=== PATIENT | female | born 1995 | race African-American/Black ===

== ENCOUNTER 2018-04-18 09:38 | Inpatient (IN) | payer OTHER ==
[~2018-04-18 09:38] MED LIST: Lidocaine 2% MPF 10 ML AMP (For Epidural Use) ONE
[2018-04-18 10:15] VITALS: BMI 30.9
[2018-04-18] MEDS ORDERED: HYDROcodone/Acetaminophen 5/325 mg Tablet PO PRN ×4 (10:50→19:28)
[2018-04-18] MEDS ORDERED: Ibuprofen 800 MG TAB PO PRN (10:50)
[2018-04-18] MEDS ORDERED: Ondansetron HCl/PF 4 MG/2 ML Vial IVP PRN ×3 (10:50→19:28)
[2018-04-18] MEDS ORDERED: Lidocaine 1% (PF) 30 ML VIAL SC PRN (10:50)
[2018-04-18] MEDS ORDERED: Promethazine HCl 25 MG/ML VIAL IM PRN ×2 (10:50→15:06)
--- NOTE | 2018-04-18 10:56 | PDOC.LDHP ---
Labor and Delivery H&P HPI: Patient of Dr Lucio () Reason for eval: Contractions at 38 weeks + Seen in triage at 1055: Patient is a 23 yo G1 with EDC of 04/28, here for irregular contractions. Good FM , no recent trauma, no SOLITARIO, no visual changes, no RUQ pain. No VB, no leakage of fluid. Denies issues. Denies CHTN HX Review of systems: complete ROS completed and as per HPI Current gestational age (weeks): 39 Due date: 04/28/18 Dating criteria: last menstrual period Grav: 1 Para: 0 OB History Details: GBS negative. BPs in record wnl. Current complications: none Abnormal US findings: No Current medications: pre- vitamins Previous surgical history: none Allergies/Adverse Reactions: Allergies Allergy/AdvReac Type Severity Reaction Status Date / Time No Known Allergies Allergy Unverified 04/18/18 10:17 - Physical Exam Vital signs reviewed and normal: yes Abnormal vital signs: BPs are 150s/80s x 2..pulse 80s, afebrile General: NAD Heart: RRR Lungs: CTAB Abdomen: gravid (S=D, suspect EFW about 6.5#, but BMI 30...so may be limited) Extremeties: trace edema FHT: category 1 [place] contractions every: irregular, about every 5-7 minutes; palpate mild to moderate - Vaginal Exam cm dilated: 2 (BOWI, midposition) Effacement: 100% Station: 0 - Assessment L&D Assessment: medically indicated induction (38 weeks with new onset higher BPs than usual, assume PIH. Per ACOG, PIH should have induction considered at 37 weeks or more. As cervix favorable, I have ordered pitocin. GBS negative. I have notified Dr lucio of his patient's arrival...pending his confirmation.) - Plan Plan: admit to L&D, informed consent obtained, anesthesia consult for pain management, other (Pitocin per protocol as CX favorable)
[2018-04-18] MEDS ORDERED: NS w/ Oxytocin 10 units 500 ML IV SCH (11:00)
[2018-04-18] MEDS: Lactated Ringer's 1,000 ML IV SCH ×2 (11:40→19:00)
[2018-04-18] MEDS: Butorphanol Tartrate 1 MG/ML VIAL SLOW IVP PRN ×2 (11:56→13:28)
[2018-04-18 11:58] LABS: Hemoglobin 9.4 g/dL (12.0-16.0); Mean Corpuscular HGB CONC 32.1 g/dL (32.0-36.0); Mean Corpuscular Hemoglobin 25.8 pg (27.0-31.0); Mean Corpuscular Volume 80.3 fL (78.0-98.0); Mean Platelet Volume 10.5 fL (7.4-10.4); Platelet Count 254 thou/uL (130-400); RBC Distribution Width 16.8 % (11.5-14.5); Red Blood Cell (RBC) Count 3.62 mill/uL (4.20-5.40); White Blood Cell (WBC) Count 15.5 thou/uL (4.8-10.8)
[2018-04-18 12:10] LABS: ALT (SGPT) 8 U/L (8-55); AST (SGOT) 24 U/L (5-34); Albumin 3.6 g/dL (3.5-5.0); Alkaline Phosphatase 154 U/L (40-150); Anion Gap 18 mmol/L (10-20); BUN (Urea Nitrogen) Less than 4 mg/dL (7.0-18.7); Bilirubin, Total 0.2 mg/dL (0.2-1.2); Calc. Creatinine Clearance 191 mL/min (70-130); Calcium 9.5 mg/dL (7.8-10.44); Carbon Dioxide 17 mmol/L (22-29); Chloride 107 mmol/L (98-107); Estimated GFR-MDRD Greater than 90; Globulin 3.6 g/dL (2.4-3.5); Glucose 76 mg/dL (70-105); Potassium 4.8 mmol/L (3.5-5.1); Protein, Total 7.2 g/dL (6.0-8.3); Sodium 137 mmol/L (136-145)
[2018-04-18 12:28] LABS: Syphilis Antibody Nonreactive (Nonreactive); Syphilis Antibody Index 0.03 S/CO (<1.00 Non-Reactive)
[2018-04-18 12:49] LABS: HBSAg Index 0.16 S/CO (0-0.99); HIV (1/2) Antibody/Antigen Non-Reactive (NonReactive); HIV 1/2 INDEX 0.32 S/CO (<1.00); Hep B Surf Ag Non-Reactive S/CO (NonReactive)
[2018-04-18] MEDS ORDERED: Bupivacaine 0.5% 20 ML, fentaNYL Citrate/PF 400 MCG in Sodium Chloride 0.9% 72 ML EPIDURAL SCH (13:45)
[2018-04-18] MEDS ORDERED: DISCONTINUE ALL PREVIOUS NARCOTICS FS SCH (13:45)
[2018-04-18] MEDS ORDERED: Lactated Ringer's 500 ML IV PRN (15:06)
[2018-04-18] MEDS ORDERED: diphenhydrAMINE 50 MG/ML VIAL IVP PRN (15:06)
[2018-04-18] MEDS ORDERED: ePHEDrine/0.9% NaCl/PF SYRINGE 50 mg/10 ml SLOW IVP PRN (15:06)
[2018-04-18] MEDS ORDERED: Eucerin (Mineral Oil/Petrolatum,White) 30 gm Jar TOP PRN (15:06)
[2018-04-18] MEDS ORDERED: Acetaminophen 325 MG TAB PO PRN (15:06)
[2018-04-18] MEDS ORDERED: Naloxone HCl 0.4 mg/ml Vial IVP PRN ×2 (15:06)
[2018-04-18] MEDS ORDERED: Communication Order-Pharmacy FS SCH (15:15)
[2018-04-18] MEDS ORDERED: fentaNYL Citrate/PF 400 MCG, Bupivacaine 0.5% 20 ML in Sodium Chloride 0.9% 72 ML EPIDURAL SCH (15:15)
[2018-04-18] MEDS: NS / Oxytocin 40 units/1000ml 1,000 ML IV PRN ×2 (16:40→18:52)
[2018-04-18] MEDS ORDERED: Milk Of Magnesia 30 ML UDCUP PO PRN (19:28)
[2018-04-18] MEDS ORDERED: Preparation H Ointment 28 GM TUBE PR PRN (19:28)
[2018-04-18] MEDS ORDERED: diphenhydrAMINE 25 MG CAP PO PRN (19:28)
[2018-04-18] MEDS ORDERED: Benzocaine/Menthol 20-0.5% 60 ML CAN TOP PRN (19:28)
[2018-04-18] MEDS ORDERED: NS / Oxytocin 40 units/1000ml 1,000 ML IV SCH (19:28)
[2018-04-18] MEDS ORDERED: hydrALAZINE 20 MG/ML VIAL SLOW IVP PRN (19:28)
[2018-04-18] MEDS ORDERED: Bisacodyl 10 MG SUPP PR PRN (19:28)
[2018-04-18] MEDS ORDERED: cloNIDine 0.1 MG TAB PO PRN (19:28)
[2018-04-18] MEDS: Docusate Calcium (SURFAK) 240 MG CAP PO SCH (21:48)
[2018-04-18 22:25] LABS: Creatinine, Urine Less than 20.00 mg/dL (47-110); Protein, Urine Random Quant Less than 10 mg/dL (1-14)
[2018-04-18] MEDS: Ibuprofen 800 MG TAB PO SCH (22:46)
[2018-04-19] MEDS ORDERED: Sodium Chloride 0.9% 10 ML ONE (02:01)
[2018-04-19 06:11] LABS: Hemoglobin 7.9 g/dL (12.0-16.0); Mean Corpuscular HGB CONC 32.4 g/dL (32.0-36.0); Mean Corpuscular Hemoglobin 26.3 pg (27.0-31.0); Mean Platelet Volume 9.9 fL (7.4-10.4); Platelet Count 207 thou/uL (130-400); RBC Distribution Width 16.4 % (11.5-14.5); Red Blood Cell (RBC) Count 3.01 mill/uL (4.20-5.40)
[2018-04-19] MEDS: Ibuprofen 800 MG TAB PO SCH ×3 (06:26→21:41)
[2018-04-19] MEDS: Ferrous Sulfate 325 MG TAB PO SCH ×2 (09:49→17:07)
[2018-04-19] MEDS: Prenatal Vitamin 1 TAB PO SCH (09:49)
[2018-04-19] MEDS: Docusate Calcium (SURFAK) 240 MG CAP PO SCH ×2 (09:49→21:41)
[2018-04-20] MEDS: Ibuprofen 800 MG TAB PO SCH ×2 (06:15→14:11)
[2018-04-20 08:38] VITALS: TEMP 98.4
[2018-04-20] MEDS: Ferrous Sulfate 325 MG TAB PO SCH (09:53)
[2018-04-20] MEDS: Prenatal Vitamin 1 TAB PO SCH (10:20)
[2018-04-20] MEDS: Docusate Calcium (SURFAK) 240 MG CAP PO SCH (10:20)
[2018-04-20 12:00] VITALS: BP 117/57
== END 2018-04-20 15:17 | disposition home or self-care (01) | DRG 775 ==
LOC: L&D/OP 09:38 → L&D 10:54 → 3SE 23:24
PROVIDERS: ADMIT Family Medicine; ATTEND Family Medicine
PROC: 10E0XZZ Delivery of Products of Conception, External Approach (ICD-10-PCS; principal; 2018-04-18)
PROC: 0KQM0ZZ Repair Perineum Muscle, Open Approach (ICD-10-PCS; 2018-04-18)
PROC: 0UQMXZZ Repair Vulva, External Approach (ICD-10-PCS; 2018-04-18)
DX: O13.4 Gestational [pregnancy-induced] hypertension without significant proteinuria, complicating childbirth (principal); O70.1 Second degree perineal laceration during delivery; O71.82 Other specified trauma to perineum and vulva; Z3A.38 38 weeks gestation of pregnancy; Z37.0 Single live birth
CPT/HCPCS: 36415; 51702; 80053; 81003; 82570; 84156; 85027; 86780; 86850; 86900; 86901; 87340; 87389; 99285; A4216; J0595; J2001; J3010; J3490; J7050

== ENCOUNTER 2022-10-04 13:34 | Emergency (ER) | payer OTHER | END 2022-10-04 14:30 | disposition home or self-care (01) | LOC: ERS 13:34 | DX: S20.229A Contusion of unspecified back wall of thorax, initial encounter (principal); V89.2XXA Person injured in unspecified motor-vehicle accident, traffic, initial encounter | CPT/HCPCS: 99283 ==